=== PATIENT | male | born 1955 | race Caucasian/White ===

== ENCOUNTER → 2022-06-11 | Outpatient (CLI) | payer MEDICARE ==
--- NOTE | 2022-06-11 12:40 | XR ---
EXAM TYPE: LUMBAR SPINE X RAY SERIES COMPARISON: NONE HISTORY: Pain TECHNIQUE: 7 views are submitted including flexion and extension lateral views. FINDINGS: Alignment is anatomic. The pedicles are intact. The transverse processes are intact. There is scol iosis with severe multilevel degenerative disc disease at all levels of the lumbar spine. Severe face t arthropathy at all levels. There is multilevel foraminal encroachment suspected. Ectasia of the aor ta with vascular calcifications. Measures approximately 2.8 cm. Posterior spondylosis L2-L3 and L5-S1 most pronounced. Alignment appears fairly stable in flexion and extension. IMPRESSION: 1. Scoliosis with severe degenerative disc disease and facet arthropathy at all levels. Suspect multi ple levels. Foraminal encroachment. Correlate with MRI for canal stenosis.
--- NOTE | 2022-06-11 15:59 | NM ---
EXAMINATION TYPE: NM DatScan Brain SPECT DATE OF EXAM: 06/11/2022 COMPARISON: NONE HISTORY: Tremors TECHNIQUE: 10 drops of Lugol's solution was administered 1 hour prior to injection as a thyroid bloc patrick agent. After the administration of 4.56 mCi I-123 Ioflupane DaTscan. Images obtained 3 hours p ost injection. SPECT images of the brain were acquired with axial and coronal reconstructions. FINDINGS: The axial SPECT images demonstrate normal background activity. Accounting for head tilt, t here appears to be slight asymmetrically blunted comma-shaped appearance of the right corpus striatum . IMPRESSION: Slightly blunted striatal activity on right may indicate early changes of idiopathic Park inson's disease or Parkinsonian syndrome.
== END | disposition home or self-care (01) ==
LOC: RADMRIMAIN 10:38
PROVIDERS: ATTEND Psychiatry & Neurology Pain Medicine
DX: R26.9 Unspecified abnormalities of gait and mobility (principal); R25.1 Tremor, unspecified; M54.50 Low back pain, unspecified; M51.36 Other intervertebral disc degeneration, lumbar region; M96.1 Postlaminectomy syndrome, not elsewhere classified
CPT/HCPCS: 72114; 78803; A9584

== ENCOUNTER → 2022-06-12 | Outpatient (CLI) | payer MEDICARE ==
--- NOTE | 2022-06-12 14:23 | MR ---
EXAMINATION TYPE: MR lumbar spine wo con DATE OF EXAM: 06/12/2022 COMPARISON: Lumbar spine radiograph 06/11/2022. HISTORY: Low back pain into rt buttocks, left lower extremity pain TECHNIQUE: Multiplanar, multisequence images of the lumbar spine were acquired without IV contrast. FINDINGS: Lumbar segments are intact. No paraspinal masses are identified. Conus medullaris has a normal appe arance. S-shaped curvature of the thoracolumbar spine. No spondylolisthesis. Multilevel type II Modic changes. Multilevel disc desiccation. T12-L1:Broad-based disc bulge with facet hypertrophy and ligamentum flavum buckling contributing to m ild spinal canal stenosis. Moderate right and severe left neural foraminal stenosis. L1-L2: Posterior disc osteophyte complex with facet hypertrophy contributing to mild to moderate spin al canal stenosis. Moderate right and severe left neural foraminal stenosis. L2-L3: Broad-based disc bulge with facet hypertrophy and ligamentum flavum buckling contributing to m oderate spinal canal stenosis. Moderate to severe bilateral neural foraminal stenosis. L3-L4: Posterior disc osteophyte complex without significant effacement of the anterior thecal sac. T here is facet hypertrophy and ligament flavum buckling. Moderate right and mild left neuroforaminal s tenosis. L4-L5: Broad-based disc bulge with facet hypertrophy and ligamentum flavum buckling contributing to m ild spinal canal stenosis. Mild bilateral neural foraminal stenosis. L5-S1: Broad-based disc bulge with minimal effacement of the anterior thecal sac. Facet hypertrophy a nd ligamentum flavum buckling demonstrated. Mild bilateral neural foraminal stenosis. IMPRESSION: Scoliosis with multilevel severe degenerative disease and facet arthropathy as described above. This is most prominent at L1-L2.
== END | disposition home or self-care (01) ==
LOC: RADMRIMAIN 13:23
PROVIDERS: ATTEND Psychiatry & Neurology Pain Medicine
DX: M51.36 Other intervertebral disc degeneration, lumbar region (principal); M47.816 Spondylosis without myelopathy or radiculopathy, lumbar region
CPT/HCPCS: 72148